=== PATIENT | female | born 1980 | race Two or more races ===

== ENCOUNTER 2019-08-26 12:58 | Emergency (ER) | payer MEDICAID ==
[~2019-08-26] VITALS: Ht 154.9 cm; Wt 70.8 kg
[2019-08-26 13:28] VITALS: BP 125/86
[2019-08-26] MEDS ORDERED: KETOROLAC TROMETH 60MG/2ML VIAL IM ONE (14:45)
== END 2019-08-26 15:52 | disposition home or self-care (01) ==
LOC: ER 13:04
DX: S92.421A Displaced fracture of distal phalanx of right great toe, initial encounter for closed fracture (principal); S29.011A Strain of muscle and tendon of front wall of thorax, initial encounter; V43.52XA Car driver injured in collision with other type car in traffic accident, initial encounter; Y93.89 Activity, other specified; Y92.89 Other specified places as the place of occurrence of the external cause; Y99.8 Other external cause status
CPT/HCPCS: 29515; 71101; 73630; 96372; 99283; J1885

== ENCOUNTER 2022-01-08 14:05 | Inpatient (IN) | payer MEDICAID ==
[~2022-01-08] VITALS: Ht 154.9 cm; Wt 77.0 kg
[2022-01-08] MEDS ORDERED: TAMSULOSIN HYDROCHLORIDE 0.4 MG CAP PO ONE (14:30)
[2022-01-08] MEDS ORDERED: SODIUM CHLORIDE 0.9% 1,000 ML IV ONE ×2 (14:30)
[2022-01-08] MEDS ORDERED: KETOROLAC TROMETH 30 MG/ML 1ML VIAL IV ONE (14:30)
[2022-01-08 15:00] LABS: Urine Bacteria FEW /hpf (None Seen); Urine Blood 2+ /uL (Negative); Urine Specific Gravity 1.015 (1.001-1.035); Urine WBC 17 /hpf (0 - 5)
[2022-01-08 15:09] LABS: Basophils # (auto) 0.1 10 ^3/uL (0-0.2); Basophils % (auto) 0.6 % (0.0-2.0); Eosinophils # (auto) 0.1 10 ^3/uL (0-0.8); Eosinophils % (auto) 1.7 % (0.0-7.0); Hemoglobin 12.5 g/dL (12.2-16.2); Lymphocytes # (auto) 2.8 10 ^3/uL (0.4-5.4); Lymphocytes % (auto) 35.1 % (10.0-50.0); Mean Corpuscular Hemoglobin 31.9 pg (28.0-32.0); Mean Corpuscular Hgb Conc. 33.9 g/dL (32.0-36.0); Monocytes # (auto) 0.3 10 ^3/uL (0-1.3); Monocytes % (auto) 3.9 % (0.0-12.0); Neutrophils # (auto) 4.7 10 ^3/uL (1.6-8.6); Neutrophils % (auto) 58.7 % (37.0-80.0); Nucleated Red Blood Cells % 0.1 %; Red Blood Cells 3.93 10^6/uL (4.0-5.20); Red Cell Distribution Width 14.8 % (11.8-14.3)
[2022-01-08 15:32] LABS: Potassium 4.1 mmol/L (3.5-5.1)
[2022-01-08 15:39] LABS: Albumin 3.5 g/dL (3.4-5.0); BUN/Creatinine Ratio 12.3; Bilirubin, Total 0.7 mg/dL (0.2-1.0); Calcium 8.7 mg/dL (8.5-10.1)
[2022-01-08] MEDS ORDERED: cefTRIAXone 1GM/50ML D5W 50 ML IV ONE (16:45)
[2022-01-08] MEDS: MORPHINE SULFATE INJECTION 2 MG/ML SYRG IV PRN (18:38)
[2022-01-08] MEDS ORDERED: ONDANSETRON HCL 4 MG/2 ML VIAL IV PRN (21:00)
[2022-01-08] MEDS ORDERED: ACETAMINOPHEN 325 MG TAB PO PRN (21:00)
[2022-01-08] MEDS ORDERED: MORPHINE SULFATE INJECTION 2 MG/ML SYRG IV PRN (21:00)
[2022-01-08 22:00] VITALS: BP 120/54
[2022-01-08] MEDS ORDERED: TEMAZEPAM 15 MG CAP PO PRN (22:00)
[2022-01-08] MEDS: HYDROcodone-ACET 5/325MG TAB PO PRN (22:20)
[2022-01-08] MEDS ORDERED: SODIUM CHLORIDE 0.9% 1,000 ML IV SCH (23:15)
[2022-01-09] MEDS: MORPHINE SULFATE INJECTION 2 MG/ML SYRG IV PRN ×4 (03:19→21:50)
[2022-01-09 05:00] VITALS: BP 129/78
[2022-01-09 06:09] LABS: Basophils # (auto) 0.1 10 ^3/uL (0-0.2); Basophils % (auto) 0.6 % (0.0-2.0); Eosinophils # (auto) 0.2 10 ^3/uL (0-0.8); Eosinophils % (auto) 2.5 % (0.0-7.0); Hematocrit 34.9 % (36.0-46.0); Hemoglobin 11.6 g/dL (12.2-16.2); Lymphocytes # (auto) 3.4 10 ^3/uL (0.4-5.4); Lymphocytes % (auto) 42.3 % (10.0-50.0); Mean Corpuscular Hemoglobin 31.3 pg (28.0-32.0); Mean Corpuscular Hgb Conc. 33.2 g/dL (32.0-36.0); Mean Corpuscular Volume 94.1 fL (80.0-100.0); Monocytes # (auto) 0.3 10 ^3/uL (0-1.3); Monocytes % (auto) 4.1 % (0.0-12.0); Neutrophils % (auto) 50.5 % (37.0-80.0); Red Blood Cells 3.71 10^6/uL (4.0-5.20); White Blood Cell 7.9 10^3/uL (4.4-10.8)
[2022-01-09 06:33] LABS: BUN/Creatinine Ratio 15.5; Calcium 8.5 mg/dL (8.5-10.1); Potassium 4.3 mmol/L (3.5-5.1)
[2022-01-09 09:00] VITALS: BP 136/52
[2022-01-09] MEDS: cefTRIAXone 1GM/50ML D5W 50 ML IV SCH (10:06)
[2022-01-09] MEDS: PANTOPRAZOLE 40 MG TAB PO SCH (10:07)
[2022-01-09] MEDS: SODIUM CHLORIDE 0.9% 1,000 ML IV SCH ×2 (12:30→21:11)
[2022-01-09 13:10] VITALS: BP 143/77
[2022-01-09 16:51] VITALS: BP 151/61
[2022-01-09] MEDS: TAMSULOSIN HYDROCHLORIDE 0.4 MG CAP PO SCH (21:10)
[2022-01-09 22:00] VITALS: BP 147/87
[2022-01-10] VITALS (12 sets, daily range): BP systolic 106–155; BP diastolic 59–101
[2022-01-10] MEDS: SODIUM CHLORIDE 0.9% 1,000 ML IV SCH ×4 (02:04→21:50)
[2022-01-10] MEDS: HYDROcodone-ACET 5/325MG TAB PO PRN ×2 (03:17→22:52)
[2022-01-10 07:11] LABS: Potassium 4.5 mmol/L (3.5-5.1)
[2022-01-10 07:16] LABS: BUN/Creatinine Ratio 9.9; Calcium 8.5 mg/dL (8.5-10.1); Magnesium 1.9 mg/dL (1.6-2.6)
[2022-01-10 07:24] LABS: Basophils # (auto) 0.1 10 ^3/uL (0-0.2); Basophils % (auto) 0.9 % (0.0-2.0); Eosinophils # (auto) 0.1 10 ^3/uL (0-0.8); Hematocrit 32.8 % (36.0-46.0); Hemoglobin 11.1 g/dL (12.2-16.2); Lymphocytes % (auto) 40.9 % (10.0-50.0); Mean Corpuscular Hemoglobin 31.9 pg (28.0-32.0); Monocytes # (auto) 0.4 10 ^3/uL (0-1.3); Monocytes % (auto) 4.9 % (0.0-12.0); Neutrophils # (auto) 3.8 10 ^3/uL (1.6-8.6); Neutrophils % (auto) 51.3 % (37.0-80.0); Nucleated Red Blood Cells % 0.1 %; Red Blood Cells 3.49 10^6/uL (4.0-5.20); Red Cell Distribution Width 15.2 % (11.8-14.3); White Blood Cell 7.4 10^3/uL (4.4-10.8)
[2022-01-10] MEDS: MORPHINE SULFATE INJECTION 2 MG/ML SYRG IV PRN (08:41)
[2022-01-10] MEDS: TAMSULOSIN HYDROCHLORIDE 0.4 MG CAP PO SCH (08:44)
[2022-01-10] MEDS: PANTOPRAZOLE 40 MG TAB PO SCH (08:44)
[2022-01-10] MEDS: cefTRIAXone 1GM/50ML D5W 50 ML IV SCH (08:44)
[2022-01-10] MEDS ORDERED: MANNITOL FTV 25% 12.5 GM/50 ML 50 ML IV ONE (11:45)
[2022-01-10 15:22] LABS: INR 0.98 (0.9-1.15); Partial Thromboplastin Time 25.4 sec (23.6-33.0)
[2022-01-10] MEDS ORDERED: IODIXANOL 320MG/ML 100ML BTL IV ONE (15:36)
[2022-01-10] MEDS ORDERED: LIDOCAINE 2%HCL (LOCAL ANESTH.) INJ 20ML MDV ONE (15:36)
[2022-01-10] MEDS ORDERED: fentaNYL CITRATE 100 MCG/2 ML VL ONE (16:02)
[2022-01-10] MEDS ORDERED: MIDAZOLAM HCL 2MG/2ML 2ml VIAL (1mg/ml) ONE (16:03)
[2022-01-11 05:00] VITALS: BP 117/61
[2022-01-11] MEDS: SODIUM CHLORIDE 0.9% 1,000 ML IV SCH ×3 (05:41→12:35)
[2022-01-11 06:04] LABS: BUN/Creatinine Ratio 14.7; Calcium 9.2 mg/dL (8.5-10.1); Potassium 4.6 mmol/L (3.5-5.1)
[2022-01-11] MEDS: MORPHINE SULFATE INJECTION 2 MG/ML SYRG IV PRN (06:10)
[2022-01-11 09:00] VITALS: BP_SYST 104; BP_SYST 142; BP_DIAS 65; BP_DIAS 82
[2022-01-11] MEDS: cefTRIAXone 1GM/50ML D5W 50 ML IV SCH (09:03)
[2022-01-11] MEDS: HYDROcodone-ACET 5/325MG TAB PO PRN ×2 (09:04→14:03)
[2022-01-11] MEDS ORDERED: CEPH-509 PO (10:56)
[2022-01-11] MEDS ORDERED: HYDR-4902 PO (10:56)
[2022-01-11] MEDS: PANTOPRAZOLE 40 MG TAB PO SCH (11:32)
[2022-01-11 12:36] VITALS: BP 150/88
[2022-01-11 15:12] VITALS: BP 150/88
== END 2022-01-11 16:50 | disposition home health service (06) | DRG 463 ==
LOC: ER 14:05 → OVERFLOW 20:51 → WEST WING 22:00
PROVIDERS: ADMIT Nurse Practitioner; ATTEND Internal Medicine
PROC: 0T9130Z Drainage of Left Kidney with Drainage Device, Percutaneous Approach (ICD-10-PCS; principal; 2022-01-10)
PROC: BT42ZZZ Ultrasonography of Left Kidney (ICD-10-PCS; 2022-01-10)
PROC: BT12YZZ Fluoroscopy of Left Kidney using Other Contrast (ICD-10-PCS; 2022-01-10)
DX: N13.6 Pyonephrosis (principal); N17.0 Acute kidney failure with tubular necrosis; E11.9 Type 2 diabetes mellitus without complications; Z20.822 Contact with and (suspected) exposure to COVID-19; Z87.442 Personal history of urinary calculi; Z90.5 Acquired absence of kidney; Z82.3 Family history of stroke; Z83.3 Family history of diabetes mellitus
CPT/HCPCS: 36415; 50432; 74176; 74425; 76942; 80048; 80053; 81001; 81025; 83735; 84702; 85025; 85610; 85730; 87086; 87426; 96361; 96365; 96375; 99152; C1729; G0378; J0696; J1885; J2250; Q9967

== ENCOUNTER 2022-02-10 07:12 | Inpatient (IN) | payer MEDICAID ==
[~2022-02-10] VITALS: Ht 154.9 cm; Wt 76.5 kg
[~2022-02-10 07:12] MED LIST: CEPH-509 PO; HYDR-4902 PO
[2022-02-10 08:09] LABS: Basophils # (auto) 0 10 ^3/uL (0-0.2); Basophils % (auto) 0.3 % (0.0-2.0); Eosinophils # (auto) 0.4 10 ^3/uL (0-0.8); Eosinophils % (auto) 3.5 % (0.0-7.0); Hematocrit 35.1 % (36.0-46.0); Hemoglobin 12.3 g/dL (12.2-16.2); Lymphocytes # (auto) 1.6 10 ^3/uL (0.4-5.4); Mean Corpuscular Hemoglobin 31.9 pg (28.0-32.0); Mean Corpuscular Hgb Conc. 35.1 g/dL (32.0-36.0); Monocytes # (auto) 0.6 10 ^3/uL (0-1.3); Monocytes % (auto) 5.4 % (0.0-12.0); Neutrophils # (auto) 9.3 10 ^3/uL (1.6-8.6); Neutrophils % (auto) 77.8 % (37.0-80.0); Nucleated Red Blood Cells % 0.1 %; Red Blood Cells 3.86 10^6/uL (4.0-5.20); Red Cell Distribution Width 14.2 % (11.8-14.3); White Blood Cell 11.9 10^3/uL (4.4-10.8)
[2022-02-10 08:22] LABS: Calcium 9.1 mg/dL (8.5-10.1); Potassium 3.5 mmol/L (3.5-5.1)
[2022-02-10 08:29] LABS: Albumin 3.6 g/dL (3.4-5.0); BUN/Creatinine Ratio 11.3; Bilirubin, Total 0.6 mg/dL (0.2-1.0); Total Protein 7.8 g/dL (6.4-8.2)
[2022-02-10 08:40] LABS: Urine Bacteria FEW /hpf (None Seen); Urine Blood 2+ /uL (Negative); Urine Hyaline Cast FEW /lpf (0 - 2); Urine Mucus FEW (None Seen); Urine Specific Gravity 1.022 (1.001-1.035); Urine WBC 142 /hpf (0 - 5)
[2022-02-10] MEDS ORDERED: MORPHINE SULFATE 4 MG/ML SYR/VIAL IV ONE (10:45)
[2022-02-10] MEDS ORDERED: SODIUM CHLORIDE 0.9% 1,000 ML IVB ONE (10:45)
[2022-02-10] MEDS ORDERED: ONDANSETRON HCL 4 MG/2 ML VIAL IV ONE (10:45)
[2022-02-10] MEDS ORDERED: cefTRIAXone 1GM/50ML D5W 50 ML IV ONE (11:15)
[2022-02-10] MEDS ORDERED: HYDROmorphone HCL 2 MG/ML VL IV ONE (14:00)
[2022-02-10] MEDS ORDERED: MORPHINE SULFATE INJECTION 2 MG/ML SYRG IV PRN (14:30)
[2022-02-10] MEDS ORDERED: NITROGLYCERIN 0.4 MG SL TAB SL PRN (14:30)
[2022-02-10] MEDS: SODIUM CHLORIDE 0.9% 1,000 ML IV SCH ×3 (14:30→22:30)
[2022-02-10] MEDS ORDERED: SODIUM CHLORIDE 0.9% 500 ML IV ONE (14:45)
[2022-02-10 16:21] LABS: Alcohol, Urine < 3.0 mg/dL (0-10); Amphetamine Screen, Urine NEGATIVE (NEGATIVE); Barbiturate Scree,Urine NEGATIVE (NEGATIVE); Benzodiazephine Screen, Urine NEGATIVE (NEGATIVE); Cannabinoid Screen, Urine NEGATIVE (NEGATIVE); Cocaine Screen, Urine NEGATIVE (NEGATIVE); Opiate Scree,Urine POSITIVE (NEGATIVE); Phencyclidine Screen, Urine NEGATIVE (NEGATIVE)
[2022-02-10 17:00] VITALS: BP_SYST 113; BP_SYST 92; BP_DIAS 52; BP_DIAS 62
[2022-02-10] MEDS: OXYCODONE W/ ACETAMINOPHEN 5/325MG TABLET PO PRN ×2 (18:55→22:45)
[2022-02-10 21:43] VITALS: BP 108/57
[2022-02-10] MEDS: SENNA 8.6 MG TAB PO SCH (23:36)
[2022-02-11 04:49] VITALS: BP 100/58
[2022-02-11 05:24] LABS: INR 1.04 (0.9-1.15)
[2022-02-11] MEDS: SODIUM CHLORIDE 0.9% 1,000 ML IV SCH ×2 (06:28→16:27)
[2022-02-11 08:00] VITALS: BP 109/73
[2022-02-11] MEDS: OXYCODONE W/ ACETAMINOPHEN 5/325MG TABLET PO PRN ×3 (08:51→20:53)
[2022-02-11] MEDS: FAMOTIDINE 20 MG TAB PO SCH (08:51)
[2022-02-11] MEDS: cefTRIAXone 1GM/50ML D5W 50 ML IV SCH (08:52)
[2022-02-11 12:00] VITALS: BP 114/58
[2022-02-11 16:00] VITALS: BP 121/88
[2022-02-11 22:00] VITALS: BP 125/76
[2022-02-12] MEDS: SODIUM CHLORIDE 0.9% 1,000 ML IV SCH ×3 (00:55→14:30)
[2022-02-12] MEDS: SENNA 8.6 MG TAB PO SCH ×2 (00:55→21:54)
[2022-02-12 05:00] VITALS: BP 115/59
[2022-02-12 05:27] LABS: Albumin 2.6 g/dL (3.4-5.0); BUN/Creatinine Ratio 12.7; Bilirubin, Total 0.2 mg/dL (0.2-1.0); Calcium 8.3 mg/dL (8.5-10.1); Total Protein 6.3 g/dL (6.4-8.2)
[2022-02-12 08:00] VITALS: BP 112/77
[2022-02-12] MEDS: cefTRIAXone 1GM/50ML D5W 50 ML IV SCH (10:00)
[2022-02-12] MEDS: OXYCODONE W/ ACETAMINOPHEN 5/325MG TABLET PO PRN ×3 (10:01→21:56)
[2022-02-12] MEDS: FAMOTIDINE 20 MG TAB PO SCH (10:01)
[2022-02-12 12:00] VITALS: BP 122/97
[2022-02-12 15:47] LABS: Basophils # (auto) 0.1 10 ^3/uL (0-0.2); Eosinophils # (auto) 0.6 10 ^3/uL (0-0.8); Eosinophils % (auto) 7.5 % (0.0-7.0); Hematocrit 35.8 % (36.0-46.0); Hemoglobin 12.1 g/dL (12.2-16.2); Lymphocytes # (auto) 2.8 10 ^3/uL (0.4-5.4); Lymphocytes % (auto) 38.8 % (10.0-50.0); Mean Corpuscular Hemoglobin 30.8 pg (28.0-32.0); Mean Corpuscular Hgb Conc. 33.8 g/dL (32.0-36.0); Mean Corpuscular Volume 91.3 fL (80.0-100.0); Monocytes # (auto) 0.4 10 ^3/uL (0-1.3); Monocytes % (auto) 5.5 % (0.0-12.0); Neutrophils # (auto) 3.4 10 ^3/uL (1.6-8.6); Neutrophils % (auto) 47.2 % (37.0-80.0); Nucleated Red Blood Cells % 0.1 %; Red Blood Cells 3.92 10^6/uL (4.0-5.20); Red Cell Distribution Width 13.9 % (11.8-14.3); White Blood Cell 7.3 10^3/uL (4.4-10.8)
[2022-02-12 16:00] VITALS: BP 114/72
[2022-02-12 22:00] VITALS: BP 99/41
[2022-02-13] MEDS: SODIUM CHLORIDE 0.9% 1,000 ML IV SCH ×3 (00:52→22:30)
[2022-02-13 05:00] VITALS: BP 109/61
[2022-02-13 06:34] LABS: Basophils # (auto) 0.1 10 ^3/uL (0-0.2); Basophils % (auto) 0.8 % (0.0-2.0); Eosinophils # (auto) 0.6 10 ^3/uL (0-0.8); Eosinophils % (auto) 8.1 % (0.0-7.0); Hematocrit 30.3 % (36.0-46.0); Hemoglobin 10.5 g/dL (12.2-16.2); Lymphocytes # (auto) 2.8 10 ^3/uL (0.4-5.4); Mean Corpuscular Hemoglobin 31.4 pg (28.0-32.0); Mean Corpuscular Hgb Conc. 34.7 g/dL (32.0-36.0); Mean Corpuscular Volume 90.6 fL (80.0-100.0); Monocytes # (auto) 0.3 10 ^3/uL (0-1.3); Monocytes % (auto) 4.6 % (0.0-12.0); Neutrophils # (auto) 3.1 10 ^3/uL (1.6-8.6); Neutrophils % (auto) 45.5 % (37.0-80.0); Red Blood Cells 3.35 10^6/uL (4.0-5.20); Red Cell Distribution Width 13.5 % (11.8-14.3); White Blood Cell 6.8 10^3/uL (4.4-10.8)
[2022-02-13 06:47] LABS: Calcium 8.7 mg/dL (8.5-10.1); Potassium 3.9 mmol/L (3.5-5.1)
[2022-02-13 08:00] VITALS: BP 102/55
[2022-02-13] MEDS: cefTRIAXone 1GM/50ML D5W 50 ML IV SCH (09:00)
[2022-02-13] MEDS: OXYCODONE W/ ACETAMINOPHEN 5/325MG TABLET PO PRN ×2 (09:00→17:00)
[2022-02-13] MEDS: FAMOTIDINE 20 MG TAB PO SCH (09:00)
[2022-02-13 12:00] VITALS: BP 99/56
[2022-02-13] MEDS: KETOROLAC TROMETH 30 MG/ML 1ML VIAL IV PRN ×2 (14:11→21:57)
[2022-02-13 16:00] VITALS: BP 123/66
[2022-02-13] MEDS: SENNA 8.6 MG TAB PO SCH (21:56)
[2022-02-13] MEDS: PROMETHAZINE HCL 25 MG/ML 1ML IV PRN (21:57)
[2022-02-13 22:00] VITALS: BP 116/71
[2022-02-14] MEDS: SODIUM CHLORIDE 0.9% 1,000 ML IV SCH ×3 (00:30→21:38)
[2022-02-14 05:00] VITALS: BP 115/49
[2022-02-14 07:07] LABS: Basophils # (auto) 0.1 10 ^3/uL (0-0.2); Eosinophils # (auto) 0.4 10 ^3/uL (0-0.8); Eosinophils % (auto) 7.6 % (0.0-7.0); Hematocrit 31.6 % (36.0-46.0); Hemoglobin 10.8 g/dL (12.2-16.2); Lymphocytes # (auto) 2.8 10 ^3/uL (0.4-5.4); Lymphocytes % (auto) 47.9 % (10.0-50.0); Mean Corpuscular Hemoglobin 30.9 pg (28.0-32.0); Mean Corpuscular Hgb Conc. 34.1 g/dL (32.0-36.0); Mean Corpuscular Volume 90.7 fL (80.0-100.0); Monocytes # (auto) 0.3 10 ^3/uL (0-1.3); Monocytes % (auto) 4.7 % (0.0-12.0); Neutrophils # (auto) 2.2 10 ^3/uL (1.6-8.6); Neutrophils % (auto) 38.8 % (37.0-80.0); Nucleated Red Blood Cells % 0.1 %; Red Blood Cells 3.49 10^6/uL (4.0-5.20); Red Cell Distribution Width 14.1 % (11.8-14.3); White Blood Cell 5.8 10^3/uL (4.4-10.8)
[2022-02-14 07:12] LABS: Calcium 8.8 mg/dL (8.5-10.1); Potassium 4.1 mmol/L (3.5-5.1)
[2022-02-14 09:00] VITALS: BP 127/55
[2022-02-14] MEDS: PROMETHAZINE HCL 25 MG/ML 1ML IV PRN (09:00)
[2022-02-14] MEDS: FAMOTIDINE 20 MG TAB PO SCH (09:00)
[2022-02-14] MEDS: KETOROLAC TROMETH 30 MG/ML 1ML VIAL IV PRN ×2 (09:00→17:41)
[2022-02-14] MEDS: cefTRIAXone 1GM/50ML D5W 50 ML IV SCH (09:00)
[2022-02-14] MEDS ORDERED: ceFAZolin 1GM/50ML 100 ML IV ONE (13:29)
[2022-02-14] MEDS ORDERED: MIDAZOLAM HCL 2MG/2ML 2ml VIAL (1mg/ml) ONE (13:34)
[2022-02-14] MEDS ORDERED: fentaNYL CITRATE 5 ML ONE (13:34)
[2022-02-14] MEDS ORDERED: ROCURONIUM 10MG/ML 10ML VIAL IV ONE (13:35)
[2022-02-14] MEDS ORDERED: ONDANSETRON HCL 4 MG/2 ML VIAL ONE (14:03)
[2022-02-14] MEDS ORDERED: LIDOCAINE 2% (LOCAL ANESTH.) PF 5ml SDV ONE (14:03)
[2022-02-14] MEDS ORDERED: PROPOFOL 10 MG/ML 20 ML IV ONE (14:03)
[2022-02-14] MEDS ORDERED: NEOSTIGMINE 1 MG/ML INJ (10mg/10ML VIAL) ONE (15:17)
[2022-02-14] MEDS ORDERED: GLYCOPYRROLATE 0.2 MG/ML 1ML VIAL ONE (15:17)
[2022-02-14] MEDS ORDERED: MANNITOL FTV 25% 12.5 GM/50 ML 50 ML IV ONE (15:30)
[2022-02-14] MEDS ORDERED: ONDANSETRON HCL 4 MG/2 ML VIAL IV PRN (15:30)
[2022-02-14] MEDS ORDERED: HYDROmorphone HCL 2 MG/ML VL IV PRN ×2 (15:30)
[2022-02-14 17:00] VITALS: BP 121/53
[2022-02-14] MEDS: CIPROFLOXACIN 400MG/200ML 200 ML IV SCH (18:14)
[2022-02-14] MEDS: SENNA 8.6 MG TAB PO SCH (21:38)
[2022-02-14] MEDS: OXYCODONE W/ ACETAMINOPHEN 5/325MG TABLET PO PRN (21:39)
[2022-02-14 22:00] VITALS: BP 113/66
[2022-02-15] MEDS: CIPROFLOXACIN 400MG/200ML 200 ML IV SCH ×2 (03:14→15:00)
[2022-02-15 05:25] VITALS: BP 106/51
[2022-02-15 06:07] LABS: Basophils # (auto) 0.1 10 ^3/uL (0-0.2); Basophils % (auto) 0.8 % (0.0-2.0); Eosinophils # (auto) 0.4 10 ^3/uL (0-0.8); Eosinophils % (auto) 4.7 % (0.0-7.0); Hematocrit 30.1 % (36.0-46.0); Hemoglobin 10.4 g/dL (12.2-16.2); Lymphocytes # (auto) 2.2 10 ^3/uL (0.4-5.4); Lymphocytes % (auto) 26.1 % (10.0-50.0); Mean Corpuscular Hemoglobin 31.4 pg (28.0-32.0); Mean Corpuscular Hgb Conc. 34.7 g/dL (32.0-36.0); Mean Corpuscular Volume 90.5 fL (80.0-100.0); Monocytes # (auto) 0.5 10 ^3/uL (0-1.3); Monocytes % (auto) 5.4 % (0.0-12.0); Neutrophils # (auto) 5.3 10 ^3/uL (1.6-8.6); Nucleated Red Blood Cells % 0.1 %; Red Blood Cells 3.32 10^6/uL (4.0-5.20); Red Cell Distribution Width 13.9 % (11.8-14.3); White Blood Cell 8.5 10^3/uL (4.4-10.8)
[2022-02-15] MEDS: SODIUM CHLORIDE 0.9% 1,000 ML IV SCH ×2 (06:25→14:49)
[2022-02-15 06:26] LABS: Potassium 4.2 mmol/L (3.5-5.1)
[2022-02-15 06:30] LABS: BUN/Creatinine Ratio 11.9; Calcium 8.7 mg/dL (8.5-10.1)
[2022-02-15 09:00] VITALS: BP 129/59
[2022-02-15] MEDS: OXYCODONE W/ ACETAMINOPHEN 5/325MG TABLET PO PRN (11:24)
[2022-02-15] MEDS: FAMOTIDINE 20 MG TAB PO SCH (11:24)
[2022-02-15 13:00] VITALS: BP 125/81
[2022-02-15] MEDS ORDERED: CIPR500T4 PO (15:14)
[2022-02-15 15:36] VITALS: BP 129/54
== END 2022-02-15 15:20 | disposition home health service (06) | DRG 466 ==
LOC: ER 07:12 → OVERFLOW 14:29 → CENTRAL 15:22
PROVIDERS: ADMIT Hospitalist; ATTEND Hospitalist
PROC: BT1F1ZZ Fluoroscopy of Left Kidney, Ureter and Bladder using Low Osmolar Contrast (ICD-10-PCS; 2022-02-14)
PROC: 0TF78ZZ Fragmentation in Left Ureter, Via Natural or Artificial Opening Endoscopic (ICD-10-PCS; principal; 2022-02-14 13:58)
DX: T83.512A Infection and inflammatory reaction due to nephrostomy catheter, initial encounter (principal); N13.6 Pyonephrosis; D64.9 Anemia, unspecified; Z20.822 Contact with and (suspected) exposure to COVID-19; Z87.442 Personal history of urinary calculi; Z90.5 Acquired absence of kidney; Z93.6 Other artificial openings of urinary tract status; Z83.3 Family history of diabetes mellitus; Z82.3 Family history of stroke; Z82.49 Family history of ischemic heart disease and other diseases of the circulatory system; N39.0 Urinary tract infection, site not specified; B96.5 Pseudomonas (aeruginosa) (mallei) (pseudomallei) as the cause of diseases classified elsewhere
CPT/HCPCS: 36415; 51702; 74176; 76000; 80048; 80053; 80307; 81001; 81025; 83605; 85025; 85610; 85730; 86850; 86900; 86901; 87040; 87081; 87086; 87088; 87186; 96365; 96375; G0378; J0690; J0696; J1885; J2001; J2250; J2405; J2704

== ENCOUNTER 2023-02-04 11:53 | Emergency (ER) | payer MEDICAID ==
[~2023-02-04] VITALS: Ht 154.9 cm; Wt 70.0 kg
[~2023-02-04 11:53] MED LIST changes: -CEPH-509 PO; +CIPR500T4 PO
[2023-02-04] MEDS ORDERED: ONDA-144 PO (17:26)
[2023-02-04 17:32] VITALS: BP 134/73
== END 2023-02-04 17:33 | disposition home or self-care (01) ==
LOC: ER 11:53
DX: B34.9 Viral infection, unspecified (principal); R07.89 Other chest pain; Y04.2XXA Assault by strike against or bumped into by another person, initial encounter; Y93.89 Activity, other specified; Y92.89 Other specified places as the place of occurrence of the external cause; Y99.8 Other external cause status
CPT/HCPCS: 71046

== ENCOUNTER 2023-04-24 09:33 | Emergency (ER) | payer MEDICAID, OTHER ==
[~2023-04-24] VITALS: Ht 154.9 cm; Wt 71.0 kg
[~2023-04-24 09:33] MED LIST changes: +ONDA-144 PO
[2023-04-24] MEDS ORDERED: TRAM50TA2 PO (11:42)
[2023-04-24 13:27] VITALS: BP 132/71
== END 2023-04-24 13:26 | disposition home or self-care (01) ==
LOC: ER 09:33
DX: S46.911A Strain of unspecified muscle, fascia and tendon at shoulder and upper arm level, right arm, initial encounter (principal); S70.01XA Contusion of right hip, initial encounter; F07.81 Postconcussional syndrome; M54.2 Cervicalgia; R51.9 Headache, unspecified; Z98.51 Tubal ligation status; V43.52XA Car driver injured in collision with other type car in traffic accident, initial encounter; Y93.89 Activity, other specified; Y92.89 Other specified places as the place of occurrence of the external cause; Y99.8 Other external cause status
CPT/HCPCS: 70450; 72125; 73030; 73502

== ENCOUNTER 2024-05-20 23:49 | Emergency (ER) | payer MEDICAID, OTHER ==
[~2024-05-20] VITALS: Ht 154.9 cm; Wt 73.0 kg
[~2024-05-20 23:49] MED LIST changes: +TRAM50TA2 PO
[2024-05-21] MEDS ORDERED: ZOFR4T PO (01:01)
[2024-05-21] MEDS: ONDANSETRON ODT 4 MG TAB PO ONE (01:21)
[2024-05-21] MEDS: KETOROLAC TROMETH 30 MG/ML 1ML VIAL IM ONE (01:22)
[2024-05-21 01:26] VITALS: BP 137/74; PULSE 58; RESP 18; TEMP 98; O2SAT 94
== END 2024-05-21 01:28 | disposition home or self-care (01) ==
LOC: ER 23:49
DX: A05.9 Bacterial foodborne intoxication, unspecified (principal); F41.9 Anxiety disorder, unspecified; F32.9 Major depressive disorder, single episode, unspecified; E78.5 Hyperlipidemia, unspecified; F15.90 Other stimulant use, unspecified, uncomplicated; Z87.442 Personal history of urinary calculi; Z98.890 Other specified postprocedural states; Z79.899 Other long term (current) drug therapy
CPT/HCPCS: 96372; 99283; J1885; Q0162

== ENCOUNTER 2024-08-20 11:25 | Emergency (ER) | payer MEDICAID ==
[~2024-08-20] VITALS: Ht 154.9 cm; Wt 77.0 kg
[~2024-08-20 11:25] MED LIST changes: +ZOFR4T PO
[2024-08-20 12:33] LABS: Basophils # (auto) 0.1 10 ^3/uL (0-0.2); Basophils % (auto) 0.7 % (0.0-2.0); Eosinophils # (auto) 0.1 10 ^3/uL (0-0.8); Hemoglobin 14.1 g/dL (12.2-16.2); Lymphocytes # (auto) 2.5 10 ^3/uL (0.4-5.4); Lymphocytes % (auto) 17.5 % (10.0-50.0); Mean Corpuscular Hemoglobin 31.4 pg (28.0-32.0); Mean Corpuscular Hgb Conc. 33.5 g/dL (32.0-36.0); Mean Corpuscular Volume 93.7 fL (80.0-100.0); Monocytes # (auto) 0.3 10 ^3/uL (0-1.3); Monocytes % (auto) 2.3 % (0.0-12.0); Neutrophils # (auto) 11.3 10 ^3/uL (1.6-8.6); Neutrophils % (auto) 78.5 % (37.0-80.0); Nucleated Red Blood Cells % 0.1 %; Platelet Count (auto) 317 10^3/uL (140-450); Red Blood Cells 4.48 10^6/uL (4.0-5.20); Red Cell Distribution Width 14.2 % (11.8-14.3); White Blood Cell 14.4 10^3/uL (4.4-10.8)
[2024-08-20 12:42] LABS: Chloride 107 mmol/L (98-107); Potassium 3.8 mmol/L (3.5-5.1); Sodium 140 mmol/L (136-145)
[2024-08-20 12:43] LABS: Anion Gap 10 (5-15); Carbon Dioxide 23 mmol/L (20-31)
[2024-08-20 12:44] LABS: Calcium 9.9 mg/dL (8.7-10.4)
[2024-08-20 12:48] LABS: BUN/Creatinine Ratio 16.5 (10.0-20.0); Blood Urea Nitrogen 15 mg/dL (9-23); Glucose 92 mg/dL (74-106)
[2024-08-20] MEDS: PANTOPRAZOLE 40 MG TAB PO ONE (14:17)
[2024-08-20] MEDS: ONDANSETRON ODT 4 MG TAB PO ONE (14:17)
[2024-08-20] MEDS: PANTOPRAZOLE 40 MG/10 ML VIAL INJ IV ONE (14:27)
[2024-08-20] MEDS: ONDANSETRON HCL 4 MG/2 ML VIAL IV ONE (14:27)
[2024-08-20 14:45] LABS: Urine Bacteria None Seen /hpf (None Seen)
[2024-08-20 15:01] LABS: Urine Blood Negative /uL (Negative); Urine Clarity Clear (Clear); Urine Color Light-Yellow (Yellow); Urine Mucus FEW (None Seen); Urine Protein, UAD TRACE (Negative); Urine Specific Gravity 1.026 (1.001-1.035); Urine Urobilinogen Normal (Negative); Urine WBC 3 /hpf (0 - 5)
[2024-08-20 15:15] LABS: Amphetamine Screen, Urine Neg (NEGATIVE)
[2024-08-20 15:16] LABS: Benzodiazephine Screen, Urine Neg (NEGATIVE)
[2024-08-20 15:17] LABS: Barbiturate Scree,Urine Neg (NEGATIVE); Cannabinoid Screen, Urine Neg (NEGATIVE); Cocaine Screen, Urine Neg (NEGATIVE); Opiate Scree,Urine Neg (NEGATIVE); Phencyclidine Screen, Urine Neg (NEGATIVE)
[2024-08-20] MEDS ORDERED: ZOFR4T PO (21:27)
[2024-08-20] MEDS ORDERED: PANT40TA2 PO (21:27)
[2024-08-20 21:42] VITALS: BP 131/87; PULSE 72; RESP 18; TEMP 98.3; O2SAT 99
== END 2024-08-20 21:43 | disposition home or self-care (01) ==
LOC: ER 11:25
DX: R10.13 Epigastric pain (principal); R10.2 Pelvic and perineal pain; E78.5 Hyperlipidemia, unspecified; D72.829 Elevated white blood cell count, unspecified; F12.10 Cannabis abuse, uncomplicated; Z98.51 Tubal ligation status; Z87.442 Personal history of urinary calculi; Z32.02 Encounter for pregnancy test, result negative; Z79.899 Other long term (current) drug therapy
CPT/HCPCS: 36415; 71045; 74176; 76705; 80048; 80307; 81001; 81025; 83690; 84702; 85025; 96374; 96375; 99285; J2405; J2470